=== PATIENT | male | born 1980 ===

== ENCOUNTER 2020-12-20 11:08 | Emergency (ER) | payer OTHER ==
[~2020-12-20] VITALS: Ht 188 cm; Wt 100.3 kg
[2020-12-20 11:14] VITALS: BP 157/103
[2020-12-20 13:07] LABS: BASOPHILS % (AUTO) 1 % (0-1); EOSINOPHILS % (AUTO) 1 % (1-7); LYMPHOCYTES % (AUTO) 32 % (22-44); MEAN CORPUSCULAR HEMOGLOBIN 30.3 pg (27.5-34.5); MEAN CORPUSCULAR HGB CONC 35.2 g/dL (33.2-36.2); MEAN PLATELET VOLUME 9.2 fL (7.4-10.4); MONOCYTES % (AUTO) 12 % (2-9); NEUTROPHILS % (AUTO) 55 % (42-75); PLATELET COUNT 246 x10^3/uL (130-400); RED BLOOD COUNT 5.96 x10^6/uL (4.38-5.82); RED CELL DISTRIBUTION WIDTH 12.4 % (9.4-14.8)
--- NOTE | 2020-12-20 13:07 | NUR ---
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
[2020-12-20 13:21] LABS: ALBUMIN 4.2 g/dL (3.4-5.0); ANION GAP 5 mmol/L (5-15); CALCIUM 9.8 mg/dL (8.5-10.1); CHLORIDE 107 mmol/L (98-107)
[2020-12-20 13:25] LABS: ALANINE AMINOTRANSFERASE 68 U/L (12-78); ALKALINE PHOSPHATASE 143 U/L (45-117); BILIRUBIN,TOTAL 1.3 mg/dL (0.2-1.0); CREATININE 0.75 mg/dL (0.7-1.3); TOTAL PROTEIN 8.2 g/dL (6.4-8.2)
[2020-12-20 13:32] LABS: MD SCAN
[2020-12-20 14:44] LABS: FREE T4 (FREE THYROXINE) 4.77 ng/dL (0.76-1.46)
== END 2020-12-20 14:38 | disposition home or self-care (01) ==
LOC: EDBD 11:08 → ED 13:36
DX: R11.2 Nausea with vomiting, unspecified (principal); Z87.891 Personal history of nicotine dependence
CPT/HCPCS: 36415; 80053; 83690; 84439; 84443; 85025; 99283